=== PATIENT | female | born 1975 | race Two or more races ===

== ENCOUNTER 2017-04-03 13:08 | Inpatient (IN) | payer MEDICAID, OTHER ==
[~2017-04-03] VITALS: Ht 160 cm; Wt 46.5 kg
[2017-04-03] MEDS ORDERED: SODIUM CHLORIDE 0.9% 1,000 ML IV ONE (13:21)
[2017-04-03] MEDS ORDERED: ONDANSETRON HCL 4 MG/2 ML VIAL IV ONE (13:30)
[2017-04-03] MEDS ORDERED: HYDROmorphone HCL 2 MG/ML VL IV ONE (13:30)
[2017-04-03 14:29] LABS: Basophils # (auto) 0.1 uL; Basophils % (auto) 1.4 % (0.0-2.0); Eosinophils # (auto) 0.2 uL; Eosinophils % (auto) 2.6 % (0.0-7.0); Hemoglobin 13.6 g/dL (12.2-16.2); Lymphocytes # (auto) 2.6 uL; Lymphocytes % (auto) 34.3 % (10.0-50.0); Mean Corpuscular Hemoglobin 30.9 pg (28.0-32.0); Mean Corpuscular Hgb Conc. 34.1 g/dL (32.0-36.0); Mean Corpuscular Volume 90.5 fL (80.0-100.0); Mean Platelet Volume 7.1 fL (6.9-10.8); Monocytes # (auto) 0.6 uL; Monocytes % (auto) 8.5 % (0.0-12.0); Neutrophils % (auto) 53.2 % (37.0-80.0); Nucleated Red Blood Cells % 0.2 %; Platelet Count (auto) 325 10^3/uL (140-450); Red Cell Distribution Width 12.2 % (11.8-14.3); White Blood Cell 7.5 10^3/uL (4.4-10.8)
[2017-04-03 14:47] LABS: Albumin 3.9 g/dL (3.4-5.0); Anion Gap 11 (5-15); Aspartate Aminotransferase 20 U/L (15-37); BUN/Creatinine Ratio 13.2; Blood Urea Nitrogen 9 mg/dL (7-18); Calcium 8.7 mg/dL (8.5-10.1); Carbon Dioxide 23 mmol/L (21-32); Chloride 107 mmol/L (98-107); GFR African American 122 mL/min; GFR Non-African American 101 mL/min; Glucose 97 mg/dL (74-106); Magnesium 2.1 mg/dL (1.6-2.6); Potassium 3.6 mmol/L (3.5-5.1); Sodium 141 mmol/L (136-145)
[2017-04-03 14:52] LABS: Alkaline Phosphatase 62 U/L (45-117); Bilirubin, Total 0.3 mg/dL (0.2-1.0); Total Protein 7.7 g/dL (6.4-8.2)
[2017-04-03] MEDS ORDERED: LACTULOSE 20Gm/30ML SOLN PO PRN (17:15)
[2017-04-03] MEDS ORDERED: ACETAMINOPHEN 500 MG TAB PO PRN (17:15)
[2017-04-03] MEDS ORDERED: NITROGLYCERIN 0.4 MG SL TAB SL PRN (17:15)
[2017-04-03] MEDS ORDERED: HYDROcodone-ACET 5/325MG TAB PO PRN (17:15)
[2017-04-03] MEDS ORDERED: LORazepam 0.5 MG TAB PO PRN (17:15)
[2017-04-03] MEDS ORDERED: MORPHINE SULF INJ 2 MG/ML SYRINGE 1ML IV PRN ×2 (17:15)
[2017-04-03] MEDS ORDERED: TEMAZEPAM 15 MG CAP PO PRN (17:15)
[2017-04-03] MEDS ORDERED: PROMETHAZINE HCL 25 MG/ML 1ML IV PRN (17:15)
[2017-04-03] MEDS ORDERED: LORazepam 2MG/ML-1ML VIAL IV PRN (17:30)
[2017-04-03] MEDS: SODIUM CHLORIDE 0.9% 1,000 ML IV SCH (17:45)
[2017-04-04] MEDS: SODIUM CHLORIDE 0.9% 1,000 ML IV SCH ×2 (05:33→18:03)
[2017-04-04 06:28] LABS: Cholesterol 153 mg/dL (< 200); HDL Cholesterol 65 mg/dL (40-59); LDL Cholesterol 86 mg/dL (< 100); Triglycerides 111 mg/dL (< 150)
[2017-04-04 08:03] VITALS: BP 91/54
[2017-04-04 08:21] VITALS: BP 91/54
[2017-04-04] MEDS ORDERED: fentaNYL CITRATE 100 MCG/2 ML VL ONE (08:31)
[2017-04-04] MEDS ORDERED: SODIUM CHLORIDE LOCK 0 ML ONE (08:31)
[2017-04-04] MEDS ORDERED: MIDAZOLAM HCL 5 MG/ML-1ML VIAL ONE (08:31)
[2017-04-04] MEDS ORDERED: diphenhdrAMINE HCL 50 MG/1 ML VL ONE (08:31)
[2017-04-04] MEDS ORDERED: KETOROLAC TROMETH 30 MG/ML 1ML VIAL IV ONE ×2 (10:15→13:30)
[2017-04-04] MEDS ORDERED: MORPHINE SULF INJ 2 MG/ML SYRINGE 1ML IV PRN (11:45)
[2017-04-04 11:48] VITALS: BP 104/71
[2017-04-04] MEDS ORDERED: LORazepam 2MG/ML-1ML VIAL IV PRN (15:15)
[2017-04-04] MEDS: HYDROmorphone HCL 2 MG/ML VL IV ONE ×2 (15:30→16:27)
[2017-04-04 20:00] VITALS: BP 111/71
[2017-04-04] MEDS ORDERED: SUMAtriptan SUCCINATE 25 MG TAB PO PRN (21:45)
[2017-04-04 21:49] VITALS: BP 111/71
[2017-04-04] MEDS ORDERED: ATORVASTATIN 20 MG TAB PO SCH (22:00)
[2017-04-05 05:35] VITALS: BP 101/65
[2017-04-05] MEDS: SODIUM CHLORIDE 0.9% 1,000 ML IV SCH (07:04)
[2017-04-05] MEDS ORDERED: LOR05T PO (12:16)
[2017-04-05] MEDS ORDERED: ATOR20TA50 PO (12:16)
== END 2017-04-05 14:05 | disposition home or self-care (01) | DRG 58 ==
LOC: ER 13:08 → TELE 13:09 → TELE-WESTW 04-04 07:34
PROVIDERS: ADMIT Internal Medicine; ATTEND Nurse Practitioner Acute Care
DX: Q07.00 Arnold-Chiari syndrome without spina bifida or hydrocephalus (principal); G95.0 Syringomyelia and syringobulbia; F41.9 Anxiety disorder, unspecified; Z83.3 Family history of diabetes mellitus
CPT/HCPCS: 36415; 70450; 70551; 71010; 72141; 80053; 80061; 82962; 83735; 84484; 85025; 94761; 96374; 96375; J1885; J2250; J2405

== ENCOUNTER 2017-04-09 07:18 | Emergency (ER) | payer MEDICAID ==
[~2017-04-09] VITALS: Ht 149.9 cm; Wt 63.5 kg
[~2017-04-09 07:18] MED LIST: ATOR20TA50 PO; LOR05T PO
[2017-04-09] MEDS ORDERED: SODIUM CHLORIDE 0.9% 1,000 ML IV ONE (08:17)
[2017-04-09] MEDS ORDERED: METOCLOPRAMIDE HCL 5MG/ml INJ 2ml VIAL IV ONE (08:30)
[2017-04-09] MEDS ORDERED: NALBUPHINE HCL 10 MG/1ml INJECTION IV ONE (08:30)
[2017-04-09] MEDS ORDERED: DEXAMETHASONE SOD PHOS 4 MG/1ML SDV INJ IV ONE (08:30)
[2017-04-09] MEDS ORDERED: LORazepam 0.5 MG TAB PO ONE (08:30)
[2017-04-09 09:07] VITALS: BP 106/73
== END 2017-04-09 11:18 | disposition home or self-care (01) ==
LOC: ER 07:18
DX: R51 Headache (principal); Q07.00 Arnold-Chiari syndrome without spina bifida or hydrocephalus; F41.9 Anxiety disorder, unspecified
CPT/HCPCS: 94761; 96361; 96374; 96375; 99284; J1100; J2300; J2765; J7030

== ENCOUNTER 2017-04-11 02:59 | Emergency (ER) | payer MEDICAID ==
[~2017-04-11] VITALS: Ht 152.4 cm; Wt 63.5 kg
[2017-04-11 03:43] VITALS: BP 111/75
== END 2017-04-11 07:05 | disposition left against medical advice (07) ==
LOC: ER 03:00
DX: R51 Headache (principal); Z76.0 Encounter for issue of repeat prescription; Z53.21 Procedure and treatment not carried out due to patient leaving prior to being seen by health care provider

== ENCOUNTER 2017-04-25 13:11 | Emergency (ER) | payer MEDICAID ==
[~2017-04-25] VITALS: Ht 149.9 cm; Wt 63.5 kg
[~2017-04-25 13:11] MED LIST changes: -LOR05T PO; +LORA-654 PO
[2017-04-25 14:32] VITALS: BP 107/61
== END 2017-04-25 14:56 | disposition home or self-care (01) ==
LOC: ER 13:11
DX: F41.9 Anxiety disorder, unspecified (principal); Z76.0 Encounter for issue of repeat prescription; Z79.899 Other long term (current) drug therapy